=== PATIENT | female | born 1975 | race Caucasian/White ===

== ENCOUNTER 2023-04-18 17:28 | Emergency (ER) | payer SELFPAY ==
[~2023-04-18] VITALS: Ht 180.3 cm; Wt 80.0 kg
[2023-04-18 17:43] VITALS: TEMP 99; O2SAT 100
[2023-04-18 18:21] LABS: BASOPHILS % 0.4 % (0.0-2.0); EOSINOPHILS % 0.3 % (0.0-5.0); HEMATOCRIT. 37.2 % (36.0-48.0); HEMOGLOBIN. 12.1 g/dL (12.0-16.0); LYMPHOCYTES % 13.1 % (20.0-50.0); MEAN CORPUSCULAR HEMOGLOBIN 29.6 pg (28.0-32.0); MEAN CORPUSCULAR HGB CONC 32.6 g/dL (31.0-37.0); MEAN CORPUSCULAR VOLUME 90.6 fL (81.0-99.0); MEAN PLATELET VOLUME 9.2 fl (7.4-10.4); MONOCYTES % 4.1 % (2.0-8.0); NEUTROPHILS % 82.1 % (40.0-76.0); PLATELET 266 x1000/uL (130-400); RED CELL DISTRIBUTION WIDTH 13.4 % (11.6-14.6); WHITE BLOOD COUNT 9.1 x1000/uL (4.5-11.0)
[2023-04-18 18:58] LABS: LACTIC ACID 2.5 mmol/L (0.4-2.0)
[2023-04-18 20:00] VITALS: BP 139/79; PULSE 101; RESP 18
[2023-04-18] MEDS ORDERED: HYDROCODONE/ACETAMINOPHEN 5/325MG TABLET PO ONE (20:00)
[2023-04-18] MEDS ORDERED: IBUPROFEN 600MG TABLET PO ONE (20:00)
[2023-04-18 20:18] LABS: ALANINE AMINOTRANSFERASE 25 IU/L (10-49); ALBUMIN 4.4 g/dL (3.2-4.8); ASPARTATE AMINOTRANSFERASE 22 IU/L (<34); BILIRUBIN TOTAL 0.4 mg/dL (0.1-1.0); CALCIUM 9.6 mg/dL (8.7-10.4); CARBON DIOXIDE 22 mEq/L (21-32); CHLORIDE 100 mEq/L (98-107); CREATININE 0.8 mg/dL (0.6-1.0); GLUCOSE 297 mg/dL (70-105); PROTEIN TOTAL 6.7 g/dL (6.0-8.3); SODIUM 136 mEq/L (136-145); TROPONIN I HIGH SENSITIVITY 6 ng/L (3.0-34); UREA NITROGEN BLOOD 9 mg/dL (9-23)
[2023-04-18 20:33] LABS: ETHANOL BLOOD < 10 mg/dL (<10)
[2023-04-18] MEDS ORDERED: IBUP-2029 MT (20:53)
== END 2023-04-18 21:26 | disposition home or self-care (01) ==
LOC: ER 17:28
DX: S82.401A Unspecified fracture of shaft of right fibula, initial encounter for closed fracture (principal); E11.9 Type 2 diabetes mellitus without complications; W18.39XA Other fall on same level, initial encounter; Y93.89 Activity, other specified; Y92.89 Other specified places as the place of occurrence of the external cause; Y99.8 Other external cause status
CPT/HCPCS: 80053; 80320; 83605; 85025; 84484; 36415; 71045; 73610; 73630; 93005; 29515; 99285; Z7610; G0480